=== PATIENT | male | born 1955 | race Caucasian/White ===

== ENCOUNTER 2023-10-07 09:07 | Outpatient (CLI) | payer OTHER | END 2023-10-07 09:27 | disposition home or self-care (01) | LOC: TOM 09:07 | PROVIDERS: ATTEND Internal Medicine Gastroenterology | DX: R10.9 Unspecified abdominal pain (principal); Z94.81 Bone marrow transplant status; E03.9 Hypothyroidism, unspecified | CPT/HCPCS: 74160; Q9965 ==